=== PATIENT | male | born 2000 | race Caucasian/White ===

== ENCOUNTER 2019-08-28 16:45 | Emergency (ER) | payer SELFPAY ==
[2019-08-28 17:01] VITALS: BP 139/78
--- NOTE | 2019-08-28 17:02 | UC ---
General HPI - HPI Summary HPI Summary: Patient has been having disorientation for the past few weeks with exhaustion, disorganization, feeling sluggish and speech issues. Comes and goes and seems to be increasing in frequency lately, occuring everyday. Also concerned with short term memory issues. No weakness. No numbness or tingling. no falls. No headaches. no fevers. had flu like illness a few weeks ago. Things have may have been seeing things that aren't actually there like people looking at him when they are not. No staring spells. No EtOH or drug use. Is a mechanical engineering student. Here with his girlfriend. Was having tea and developed left sided chest pain that happens in the past. Started to get anxious and decided to come to urgent care for further evaluation. No CP currently. No SOB. PMHx: reviewed meds; Reviewed - History of Current Complaint Chief Complaint: UCChestPain Stated Complaint: CHEST PAIN Time Seen by Provider: 08/28/19 16:51 Pain Intensity: 0 - Allergy/Home Medications Allergies/Adverse Reactions: Allergies Allergy/AdvReac Type Severity Reaction Status Date / Time No Known Allergies Allergy Verified 08/28/19 17:01 Home Medications: Home Medications NK [No Home Medications Reported] 08/28/19 [History Confirmed 08/28/19] PMH/Surg Hx/FS Hx/Imm Hx Previously Healthy: Yes - Surgical History Surgical History: None - Social History Alcohol Use: None Substance Use Type: None Smoking Status (MU): Never Smoked Tobacco Review of Systems All Other Systems Reviewed And Are Negative: Yes Physical Exam Triage Information Reviewed: Yes Appearance: Well-Appearing Vital Signs: Initial Vital Signs Temp 98.8 F 08/28/19 16:56 Pulse 57 08/28/19 16:56 Resp 18 08/28/19 16:56 BP 139/78 08/28/19 16:56 Pulse Ox 100 08/28/19 16:56 Eyes: Positive: Conjunctiva Clear ENT: Positive: Normal ENT inspection Neck: Positive: Supple Respiratory: Positive: Lungs clear, Normal breath sounds Cardiovascular: Positive: RRR, No Murmur Neurological Exam: Normal Course/Dx - Course Course Of Treatment: This is a 19 yr with a myriad of neurologic symptoms with no focal findings Discussed that he would benefit from further work up including labs and possibly neurology and/or mental health evaluation EKG: NSR DIscussed this could likely all be done as an outpatient but patient would prefer to have further work up and would like to go to the ER for further evaluation THey took a bus here and declined EMS transfer. They are going to travel via uber to [facility] ED - sign out giving to Dr. Coffman Plan Recommend going directly to the ER at [facility] [address] Recommend further work up for your symptoms that we cannot provide here. - Diagnoses Provider Diagnosis: Altered mental status Discharge ED - Sign-Out/Discharge Documenting (check all that apply): Patient Departure All imaging exams completed and their final reports reviewed: No Studies - Discharge Plan Condition: Fair Disposition: HOME-RECOMMEND TO ED Referrals: No Primary Care Phys,NOPCP [Primary Care Provider] - Additional Instructions: Recommend going directly to the ER at [facility] [address] Recommend further work up for your symptoms that we cannot provide here. - Billing Disposition and Condition Condition: FAIR Disposition: Home-Recommend to ED
== END 2019-08-28 17:25 | disposition home health service (06) ==
LOC: UCEAST 16:45
DX: R41.82 Altered mental status, unspecified (principal)
CPT/HCPCS: 99202; G0463

== ENCOUNTER 2019-08-28 17:45 | Emergency (ER) | payer SELFPAY ==
--- NOTE | 2019-08-28 20:01 | ED ---
Complex/Multi-Sys Presentation - HPI Summary HPI Summary: 19-year-old male presents to the emergency department today with chief complaint of decreased focus, occasional visual hallucinations, fatigue, decrease in school performance. Patient states he has had these symptoms for months but they have gotten acutely worse in the last month. Patient denies recent stress. Patient denies previous history of psychosis but he does endorse that has parents had"something wrong with them". Patient denies suicidal ideation or homicidal ideation or auditory hallucinations. Patient has no neuro deficits, fever, chest pain, developing shortness of breath, headache, changes in vision, nausea, vomiting, diarrhea. Patient is otherwise well and denies recent recreational drug use or alcohol use. - History Of Current Complaint Chief Complaint: EDGeneral Time Seen by Provider: 08/28/19 19:49 Hx Obtained From: Patient Onset/Duration: Gradual Onset Timing: Intermittent, Lasting:, Seconds Severity Currently: None Severity Initially: Mild Associated Signs And Symptoms: Positive: Confusion - Allergies/Home Medications Allergies/Adverse Reactions: Allergies Allergy/AdvReac Type Severity Reaction Status Date / Time No Known Allergies Allergy Verified 08/28/19 17:55 Home Medications: Home Medications NK [No Home Medications Reported] 08/28/19 [History Confirmed 08/28/19] PMH/Surg Hx/FS Hx/Imm Hx Endocrine/Hematology History: Denies: Hx Diabetes, Hx Thyroid Disease Cardiovascular History: Denies: Hx Hypertension Respiratory History: Denies: Hx Asthma, Hx Chronic Obstructive Pulmonary Disease (COPD) GI History: Denies: Hx Ulcer Infectious Disease History: No Infectious Disease History: Denies: Hx Hepatitis, Hx Human Immunodeficiency Virus (HIV), Traveled Outside the [place] in Last 30 Days - Social History Alcohol Use: None Substance Use Type: Reports: None Smoking Status (MU): Never Smoked Tobacco Review of Systems Constitutional: Negative Eyes: Negative ENT: Negative Cardiovascular: Negative Respiratory: Negative Gastrointestinal: Negative Genitourinary: Negative Musculoskeletal: Negative Skin: Negative Neurological/Mental Status: Negative Psychological: Normal All Other Systems Reviewed And Are Negative: Yes Physical Exam Triage Information Reviewed: Yes Vital Signs On Initial Exam: Initial Vitals Temp Pulse Resp BP Pulse Ox 98 F 64 16 147/59 99 08/28/19 17:51 08/28/19 17:51 08/28/19 17:51 08/28/19 17:51 08/28/19 17:51 Vital Signs Reviewed: Yes Appearance: Positive: Well-Appearing, No Pain Distress, Well-Nourished Skin: Positive: Warm, Skin Color Reflects Adequate Perfusion Eyes: Positive: EOMI, SLIME ENT: Positive: Hearing grossly normal Respiratory/Lung Sounds: Positive: Clear to Auscultation, Breath Sounds Present Cardiovascular: Positive: RRR, S1, S2 Abdomen Description: Positive: Nontender, Soft Musculoskeletal: Positive: Strength/ROM Intact Neurological: Positive: Sensory/Motor Intact, Alert, Oriented to Person Place, Time, Normal Gait, Facial Symmetry, Speech Normal Psychiatric: Positive: Normal, Affect/Mood Appropriate AVPU Assessment: Alert Procedures - Sedation Patient Received Moderate/Deep Sedation with Procedure: No Diagnostics - Vital Signs Vital Signs Temp Pulse Resp BP Pulse Ox 08/28/19 19:52 98.3 F 08/28/19 19:50 67 99 08/28/19 19:49 55 127/74 100 08/28/19 17:51 98 F 64 16 147/59 99 - Laboratory Result Diagrams: 08/28/19 20:10 08/28/19 20:10 Lab Statement: Any lab studies that have been ordered have been reviewed, and results considered in the medical decision making process. Complex Multi-Symp Course/Dx Course Of Treatment: Patient was evaluated in the emergency department today for episodic confusion. Vitals noted and stable. Laboratory studies done which returned with no concerning findings. It appears patient is not suffering from any acute pathology at this time. Patient discharged to outpatient follow-up for further investigation of his symptoms. He was deemed the risks of CT scanning outweighed the benefits at this time. - Diagnoses Differential Diagnoses/HQI/PQRI: Metabolic Abnormality, Other - Psychosis, delirium Provider Diagnoses: Confusion Discharge ED - Sign-Out/Discharge Documenting (check all that apply): Patient Departure - Discharge Plan Condition: Stable Disposition: HOME Patient Education Materials: Altered Mental Status (ED) Referrals: No Primary Care Phys,NOPCP [Primary Care Provider] - Additional Instructions: There is no evidence of acute medical pathology requiring intervention time. Please follow-up with [facility] for further evaluation and management of your symptoms. Please return to this emergency department immediately if you develop any new or worsening symptoms. - Billing Disposition and Condition Condition: STABLE Disposition: Home
[2019-08-28 20:26] LABS: ABS Eosinophils 0.1 10^3/ul (0-0.6); ABS Monocytes 0.8 10^3/ul (0-0.8); Eosinophil % 1.7 %; Hematocrit 41 % (42-52); Hemoglobin 14.8 g/dL (14.0-18.0); Lymphocyte % 24.7 %; Mean Corpuscular HGB Conc 36 g/dL (31-36); Mean Corpuscular Hemoglobin 31 pg (27-31); Mean Corpuscular Volume 85 fL (80-94); Mean Platelet Volume 8.2 fL (7.4-10.4); Nucleated Red Blood Cells % 0.1; Platelet Count 216 10^3/uL (150-450); Red Blood Count 4.83 10^6 /uL (4.18-5.48); Red Cell Distribution Width 12 % (10-15); White Blood Count 7.9 10^3/uL (3.5-10.8)
[2019-08-28 20:34] LABS: Albumin 4.5 g/dL (3.2-5.2); Albumin/Globulin Ratio 1.7 (1-3); BUN/Creatinine Ratio 22.4 (8-20); Calcium 9.7 mg/dL (8.6-10.3); EGFR African American 158.2 (>60); EGFR Non-African American 130.8 (>60); Globulin 2.6 g/dL (2-4); Total Bilirubin 0.6 mg/dL (0.2-1.0); Total Protein 7.1 g/dL (6.4-8.9)
[2019-08-28 21:57] VITALS: BP 110/75
== END 2019-08-28 21:59 | disposition home or self-care (01) ==
LOC: ED 17:45
DX: R41.0 Disorientation, unspecified (principal)
CPT/HCPCS: 36415; 80053; 85025; 99282